=== PATIENT | male | born 1940 | race Caucasian/White ===

== ENCOUNTER 2017-08-12 13:08 | Emergency (ER) | payer MEDICARE, BC ==
[~2017-08-12] VITALS: Ht 175.3 cm; Wt 95.5 kg
[~2017-08-12 13:08] MED LIST: ASPIRIN 81M81 MG/TA2 PO; BETAPACE 80MG80 MG PO; GLUCOPHAGE1000 MG PO; LIPITOR20 MG PO; LOTREL 5/10MG C1 CAP PO; MAG-OX 400400 MG/TAB PO; NITROSTAT0.4 MG/TAB SL; NORCO 325 MG-51 TAB PO; PERCOCET 325 MG1 TA2 PO; PRIL40 PO; PRILOTC PO; TOPROL XL 50MG50 MG PO; XARELTO20 MG PO
[2017-08-12 13:15] VITALS: TEMP 98.7
[2017-08-12] MEDS ORDERED: PROTONIX 40MG T40 MG PO (14:25)
[2017-08-12 14:37] LABS: COLLECTION METHOD CLEAN CATCH
[2017-08-12 14:49] LABS: PH 5 (5-8); SQUAMOUS EPITHELIAL 0-2 /hpf; URINE APPEARANCE Clear; URINE BACTERIA None Seen /hpf; URINE BILIRUBIN Negative (NEGATIVE); URINE BLOOD Negative (NEGATIVE); URINE COLOR Straw; URINE GLUCOSE Negative (NEGATIVE); URINE KETONE Negative (NEGATIVE); URINE LEUKOCYTE ESTERASE Negative (NEGATIVE); URINE NITRATE Negative (NEGATIVE); URINE PROTEIN(semi-quant) Negative (NEGATIVE); URINE RBC 0-2 /hpf; URINE UROBILINOGEN Negative (NEGATIVE)
[2017-08-12] MEDS ORDERED: FLEXERIL 1010 MG/TAB PO (15:49)
[2017-08-12] MEDS ORDERED: PERCOCET 325 MG1 TA2 PO (15:49)
[2017-08-12 16:08] VITALS: BP 132/100; PULSE 80
== END 2017-08-12 16:09 | disposition home or self-care (01) ==
LOC: COL.ER 13:08
PROVIDERS: Emergency Medicine
DX: M54.42 Lumbago with sciatica, left side (principal); E11.9 Type 2 diabetes mellitus without complications; I10 Essential (primary) hypertension; I48.91 Unspecified atrial fibrillation; E78.5 Hyperlipidemia, unspecified; Z87.442 Personal history of urinary calculi; Z79.84 Long term (current) use of oral hypoglycemic drugs; Z79.82 Long term (current) use of aspirin
CPT/HCPCS: J1885

== ENCOUNTER 2017-11-26 08:20 | Day surgery (SDC) | payer MEDICARE, BC ==
[~2017-11-26] VITALS: Ht 175.3 cm; Wt 97.1 kg
[~2017-11-26 08:20] MED LIST changes: +BETAPACE 120MG120 MG PO; -BETAPACE 80MG80 MG PO; +FLEXERIL 1010 MG/TAB PO; +PROTONIX 40MG T40 MG PO
[2017-11-26 08:59] LABS: INR 1.9 (0.8-3.0); PROTHROMBIN TIME 21.2 SECONDS (9.7-12.8)
[2017-11-26 09:01] LABS: POTASSIUM 4.3 mmol/L (3.4-5.0)
[2017-11-26 09:35] LABS: THYROID STIMULATING HORMONE 2.63 uIU/mL (0.465-4.680)
[2017-11-26] MEDS ORDERED: CADUET 5 MG-101 TAB PO (09:55)
[2017-11-26 09:59] VITALS: BP 143/83; PULSE 60; TEMP 98
[2017-11-26] MEDS ORDERED: CEPHALEXIN500 M1 PO (10:47)
[2017-11-26 11:50] VITALS: BP 111/68; PULSE 48
[2017-11-26 12:00] VITALS: BP 110/63; PULSE 46
[2017-11-26 12:15] VITALS: BP 119/70; PULSE 48
[2017-11-26 12:30] VITALS: BP 122/73; PULSE 47
== END 2017-11-26 14:12 | disposition home or self-care (01) ==
LOC: COL.CAR 08:20
PROVIDERS: Internal Medicine Cardiovascular Disease
DX: I48.0 Paroxysmal atrial fibrillation (principal); E11.9 Type 2 diabetes mellitus without complications; I42.0 Dilated cardiomyopathy; E78.5 Hyperlipidemia, unspecified; I10 Essential (primary) hypertension; I34.0 Nonrheumatic mitral (valve) insufficiency; Z79.82 Long term (current) use of aspirin; Z79.01 Long term (current) use of anticoagulants; Z87.891 Personal history of nicotine dependence; Z82.49 Family history of ischemic heart disease and other diseases of the circulatory system
CPT/HCPCS: J2250; J3010; J7030

== ENCOUNTER → 2018-05-04 | Outpatient (CLI) | payer MEDICARE, BC ==
[~2018-05-04] MED LIST changes: +CADUET 5 MG-101 TAB PO; +CEPHALEXIN500 M1 PO
== END ==
LOC: ZCOL.LAB 15:11
DX: E11.59 Type 2 diabetes mellitus with other circulatory complications (principal)

== ENCOUNTER 2021-12-20 04:03 | Emergency (ER) | payer MEDICARE, BC ==
[~2021-12-20] VITALS: Ht 175.3 cm; Wt 89.5 kg
[2021-12-20 04:09] VITALS: BP 133/87; TEMP 97.1
[2021-12-20] MEDS ORDERED: AMOXICILLIN 50500 MG PO (04:33)
[2021-12-20] MEDS ORDERED: AMARYL1 MG PO (04:35)
[2021-12-20] MEDS ORDERED: BETAPACE 80MG80 MG PO (04:35)
[2021-12-20] MEDS ORDERED: LOTREL 5/10MG C1 CAP PO (04:35)
[2021-12-20 05:25] VITALS: PULSE 72
== END 2021-12-20 05:25 | disposition home or self-care (01) ==
LOC: COL.ER 04:03
DX: K06.8 Other specified disorders of gingiva and edentulous alveolar ridge (principal); Z98.818 Other dental procedure status; Z79.01 Long term (current) use of anticoagulants

== ENCOUNTER 2022-12-27 06:43 | Day surgery (SDC) | payer MEDICARE, BC ==
[2022-12-27] VITALS (7 sets, daily range): BP systolic 132–144; BP diastolic 70–95; PULSE 50–64; TEMP 97.3
[~2022-12-27] VITALS: Ht 175.4 cm; Wt 93.2 kg
[~2022-12-27 06:43] MED LIST changes: +AMARYL1 MG PO; +AMOXICILLIN 50500 MG PO; +BETAPACE 80MG80 MG PO
[2022-12-27 07:49] LABS: HEMATOCRIT 38.1 % (42.0-52.0); HEMOGLOBIN 12.3 g/dl (13.5-18.0); MEAN CELL VOLUME 103 fl (80.0-100.0); MEAN CORPUSCULAR HEMOGLOBIN 33 pg (27-31); MEAN CORPUSCULAR HGB CONC 32 g/dl (33.0-37.0); MEAN PLATELET VOLUME 10.6 fl (7.4-10.4); PLATELET COUNT 248 K/mm3 (130-400); RED BLOOD COUNT 3.69 M/mm3 (4.20-5.60); REDCELL DISTRIBUTION WIDTH-CV 14.6 % (11.5-14.5)
[2022-12-27 07:54] LABS: INR 2.7 (0.8-3.0); PROTHROMBIN TIME 29.1 SECONDS (9.7-12.8)
[2022-12-27 07:56] LABS: PARTIAL THROMBOPLASTIN TIME 44.4 SECONDS (26.0-37.0)
[2022-12-27 08:05] LABS: CALCIUM 9.1 mg/dL (8.4-10.2); CREATININE, serum 1.18 mg/dL (0.72-1.25); MAGNESIUM 1.7 mg/dL (1.6-2.6); POTASSIUM 4.6 mmol/L (3.5-4.5)
[2022-12-27] MEDS ORDERED: VITAMIND3 5000 PO (08:07)
[2022-12-27 08:26] LABS: THYROID STIMULATING HORMONE 2.543 uIU/mL (0.350-4.940)
--- NOTE | 2022-12-27 09:26 | NUR ---
Report from ROYCE Nunez.pt is awake and alert.
[2022-12-27] MEDS ORDERED: BETAPACE 80MG80 MG PO (10:42)
--- NOTE | 2022-12-27 11:00 | NUR ---
Discharge instructions given to pt.Pt verbalizes understanding.Pt escorted out via wheelchair by this nurse.
== END 2022-12-27 17:15 ==
LOC: COL.CAR 06:43
PROVIDERS: Internal Medicine Cardiovascular Disease
DX: I48.0 Paroxysmal atrial fibrillation (principal); K21.9 Gastro-esophageal reflux disease without esophagitis; I10 Essential (primary) hypertension; E78.5 Hyperlipidemia, unspecified; I34.0 Nonrheumatic mitral (valve) insufficiency; I42.9 Cardiomyopathy, unspecified; Z87.891 Personal history of nicotine dependence; Z79.899 Other long term (current) drug therapy; Z79.82 Long term (current) use of aspirin; Z79.01 Long term (current) use of anticoagulants
CPT/HCPCS: J2704; J7120

== ENCOUNTER 2023-02-12 07:19 | Day surgery (SDC) | payer MEDICARE, BC ==
[~2023-02-12] VITALS: Ht 175.6 cm; Wt 92.0 kg
[~2023-02-12 07:19] MED LIST changes: +VITAMIND3 5000 PO
[2023-02-12 08:05] VITALS: BP 135/82; PULSE 63; TEMP 97.7
--- NOTE | 2023-02-12 09:39 | NUR ---
Patient doesn't have ride, elects to do procedure under local anesthetic only. Patient tolerates procedure well, denies discomfort.
[2023-02-12 09:55] VITALS: BP 138/68; PULSE 61
--- NOTE | 2023-02-12 09:55 | NUR ---
pt returned from cathl lab via bed, awake and alert, no pain/sedation medication given to pt per his request. dressing over left chest is clean and dry. lab scientist nurse did education on paula on phone for loop. pt takes juice, no c/o or requests
[2023-02-12] MEDS ORDERED: CEPHALEXIN500 M1 PO (11:11)
[2023-02-12 11:15] VITALS: BP 120/70; PULSE 58
--- NOTE | 2023-02-12 11:15 | NUR ---
pt up in chair, dressed, dressing over site is clean and dry. reviewed discharge inst. 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 IV dc'd intact, pt discharged amb. with box device and inst. to car at 1135
== END 2023-02-12 11:35 | disposition home or self-care (01) ==
LOC: COL.CAR 07:19
DX: I48.91 Unspecified atrial fibrillation (principal); E78.5 Hyperlipidemia, unspecified; I10 Essential (primary) hypertension; I34.0 Nonrheumatic mitral (valve) insufficiency; Z95.818 Presence of other cardiac implants and grafts; Z79.01 Long term (current) use of anticoagulants; Z87.891 Personal history of nicotine dependence; Z79.899 Other long term (current) drug therapy
CPT/HCPCS: C1764; J0665; J7040